=== PATIENT | male | born 1995 | race Caucasian/White ===

== ENCOUNTER 2017-06-05 12:00 | Inpatient (IN) | payer MEDICAID, OTHER ==
[~2017-06-05] VITALS: Ht 180.3 cm; Wt 67.7 kg
[2017-06-05 12:50] LABS: Urine Bilirubin Negative (Negative); Urine Blood Negative /uL (Negative); Urine Color Yellow (Yellow); Urine Glucose Normal (Normal); Urine Ketone Negative (Negative); Urine Mucus FEW (None Seen); Urine Nitrite Negative (Negative); Urine RBC 1 /hpf (0 - 3); Urine Urobilinogen Normal (Negative)
[2017-06-05 12:57] LABS: Basophils # (auto) 0 uL; Basophils % (auto) 0.2 % (0.0-2.0); Eosinophils # (auto) 0 uL; Eosinophils % (auto) 0.2 % (0.0-7.0); Hematocrit 44.5 % (41.0-53.0); Hemoglobin 15.1 g/dL (13.5-17.5); Lymphocytes # (auto) 1.2 uL; Lymphocytes % (auto) 9.7 % (10.0-50.0); Mean Corpuscular Hemoglobin 30.2 pg (28.0-32.0); Mean Corpuscular Hgb Conc. 33.9 g/dL (32.0-36.0); Mean Corpuscular Volume 89.2 fL (80.0-100.0); Mean Platelet Volume 6.5 fL (6.9-10.8); Monocytes # (auto) 0.7 uL; Monocytes % (auto) 5.9 % (0.0-12.0); Neutrophils # (auto) 10.2 uL; Platelet Count (auto) 246 10^3/uL (140-450); Red Cell Distribution Width 13.5 % (11.8-14.3); White Blood Cell 12.1 10^3/uL (4.4-10.8)
[2017-06-05 13:09] LABS: Albumin 4.5 g/dL (3.4-5.0); Calcium 9.7 mg/dL (8.5-10.1)
[2017-06-05 13:11] LABS: BUN/Creatinine Ratio 20.7
[2017-06-05 13:13] LABS: Bilirubin, Total 0.5 mg/dL (0.2-1.0); Total Protein 7.6 g/dL (6.4-8.2)
[2017-06-05] MEDS ORDERED: ONDANSETRON HCL 4 MG/2 ML VIAL IV ONE (14:45)
[2017-06-05] MEDS ORDERED: SODIUM CHLORIDE 0.9% 1,000 ML IV ONE (14:45)
[2017-06-05] MEDS ORDERED: KETOROLAC TROMETH 30 MG/ML 1ML VIAL IV ONE (14:45)
[2017-06-05] MEDS ORDERED: MORPHINE SULFATE 10 MG/ML INJ 1ML SDV IV ONE (15:00)
[2017-06-05] MEDS ORDERED: cefTRIAXone 1GM/50ML D5W 50 ML IV ONE (15:00)
[2017-06-05] MEDS ORDERED: HYDROmorphone HCL 2 MG/ML VL IV PRN (15:45)
[2017-06-05] MEDS ORDERED: ONDANSETRON HCL 4 MG/2 ML VIAL IV PRN (15:45)
[2017-06-05 16:36] LABS: INR 0.95 (0.9-1.15); Partial Thromboplastin Time 21.9 sec (22.64-33.71); Prothrombin Time 10.4 sec (9.37-12.3)
[2017-06-05] MEDS: SODIUM CHLORIDE 0.9% 1,000 ML IV SCH (20:00)
[2017-06-05 22:00] VITALS: BP 113/48
[2017-06-05] MEDS: metroNIDAZOLE 500MG/100ML 100 ML IV SCH (23:53)
[2017-06-06] VITALS (7 sets, daily range): BP systolic 112–144; BP diastolic 64–89
[2017-06-06 05:58] LABS: Basophils # (auto) 0 uL; Basophils % (auto) 0.2 % (0.0-2.0); Eosinophils # (auto) 0.1 uL; Eosinophils % (auto) 0.8 % (0.0-7.0); Hematocrit 40.5 % (41.0-53.0); Hemoglobin 13.8 g/dL (13.5-17.5); Lymphocytes # (auto) 2.2 uL; Lymphocytes % (auto) 29.3 % (10.0-50.0); Mean Corpuscular Hemoglobin 30.6 pg (28.0-32.0); Mean Corpuscular Hgb Conc. 34.1 g/dL (32.0-36.0); Mean Corpuscular Volume 89.7 fL (80.0-100.0); Mean Platelet Volume 6.6 fL (6.9-10.8); Monocytes # (auto) 0.6 uL; Monocytes % (auto) 8.4 % (0.0-12.0); Neutrophils # (auto) 4.6 uL; Neutrophils % (auto) 61.3 % (37.0-80.0); Nucleated Red Blood Cells % 0.1 %; Platelet Count (auto) 202 10^3/uL (140-450); Red Cell Distribution Width 13.6 % (11.8-14.3); White Blood Cell 7.6 10^3/uL (4.4-10.8)
[2017-06-06] MEDS: metroNIDAZOLE 500MG/100ML 100 ML IV SCH ×4 (06:03→23:44)
[2017-06-06] MEDS: SODIUM CHLORIDE 0.9% 1,000 ML IV SCH ×3 (06:03→20:25)
[2017-06-06 06:23] LABS: BUN/Creatinine Ratio 21.3; Potassium 3.9 mmol/L (3.5-5.1)
[2017-06-06] MEDS ORDERED: POVIDONE IODINE 10 % TOPICAL OINT 30GM TOP ONE (06:42)
[2017-06-06] MEDS ORDERED: METOCLOPRAMIDE HCL 5MG/ml INJ 2ml VIAL ONE (07:09)
[2017-06-06] MEDS ORDERED: fentaNYL CITRATE 100 MCG/2 ML VL ONE (07:09)
[2017-06-06] MEDS ORDERED: LIDOCAINE HCL 2 %PF INJ 10ML AMP IJ ONE (07:09)
[2017-06-06] MEDS ORDERED: SODIUM CHLORIDE LOCK 10 ML ONE (07:09)
[2017-06-06] MEDS ORDERED: ONDANSETRON HCL 4 MG/2 ML VIAL ONE (07:09)
[2017-06-06] MEDS ORDERED: MIDAZOLAM HCL 1MG/1ML-2 ML VIAL ONE (07:10)
[2017-06-06] MEDS ORDERED: PROPOFOL 10 MG/ML 20 ML IV ONE (07:10)
[2017-06-06] MEDS ORDERED: ROCURONIUM 10MG/ML 10ML VIAL IV ONE (07:10)
[2017-06-06] MEDS ORDERED: KETOROLAC TROMETH 30 MG/ML 1ML VIAL ONE (08:05)
[2017-06-06] MEDS ORDERED: NEOSTIGMINE 1 MG/ML INJ (10mg/10ML VIAL) ONE (08:08)
[2017-06-06] MEDS ORDERED: GLYCOPYRROLATE 0.2 MG/ML 1ML VIAL ONE ×2 (08:08→08:11)
[2017-06-06] MEDS ORDERED: HYDROmorphone HCL 2 MG/ML VL IV PRN (08:30)
[2017-06-06] MEDS ORDERED: METOCLOPRAMIDE HCL 5MG/ml INJ 2ml VIAL IV ONE (08:30)
[2017-06-06] MEDS: cefTRIAXone 1GM/50ML D5W 50 ML IV SCH (09:34)
[2017-06-07 05:00] VITALS: BP 134/72
[2017-06-07] MEDS: metroNIDAZOLE 500MG/100ML 100 ML IV SCH (06:14)
[2017-06-07 07:31] LABS: Basophils # (auto) 0 uL; Basophils % (auto) 0.4 % (0.0-2.0); Eosinophils # (auto) 0 uL; Eosinophils % (auto) 0.8 % (0.0-7.0); Hematocrit 36.8 % (41.0-53.0); Hemoglobin 12.5 g/dL (13.5-17.5); Lymphocytes # (auto) 2.1 uL; Lymphocytes % (auto) 33.1 % (10.0-50.0); Mean Corpuscular Hemoglobin 30.3 pg (28.0-32.0); Mean Corpuscular Hgb Conc. 33.8 g/dL (32.0-36.0); Mean Corpuscular Volume 89.5 fL (80.0-100.0); Mean Platelet Volume 6.8 fL (6.9-10.8); Monocytes # (auto) 0.5 uL; Monocytes % (auto) 7.2 % (0.0-12.0); Neutrophils # (auto) 3.8 uL; Neutrophils % (auto) 58.5 % (37.0-80.0); Nucleated Red Blood Cells % 0.1 %; Platelet Count (auto) 192 10^3/uL (140-450); Red Cell Distribution Width 13.6 % (11.8-14.3); White Blood Cell 6.4 10^3/uL (4.4-10.8)
[2017-06-07 08:00] VITALS: BP 126/83
[2017-06-07 09:13] VITALS: BP 127/75
[2017-06-07] MEDS: cefTRIAXone 1GM/50ML D5W 50 ML IV SCH (09:17)
== END 2017-06-07 10:20 | disposition home or self-care (01) | DRG 225 ==
LOC: ER 12:00 → OVERFLOW 12:01 → EAST 16:58
PROVIDERS: ADMIT Internal Medicine; ATTEND Internal Medicine
PROC: 0DTJ4ZZ Resection of Appendix, Percutaneous Endoscopic Approach (ICD-10-PCS; principal; 2017-06-06 07:39)
DX: K35.80 Unspecified acute appendicitis (principal); E87.2 Acidosis; E87.8 Other disorders of electrolyte and fluid balance, not elsewhere classified; F19.10 Other psychoactive substance abuse, uncomplicated; F17.210 Nicotine dependence, cigarettes, uncomplicated; Z82.49 Family history of ischemic heart disease and other diseases of the circulatory system
CPT/HCPCS: 36415; 71010; 74176; 80048; 80053; 80307; 81001; 82150; 83605; 83690; 85025; 85610; 85730; 86850; 86900; 86901; 93005; 96365; 96375; J0696; J1885; J2250; J2405; J2704; J3490